=== PATIENT | female | born 1965 | race Caucasian/White ===

== ENCOUNTER → 2017-05-11 | Outpatient (CLI) | payer OTHER ==
[~2017-05-11] MED LIST: ALLEGRA D; BACTRIM DS TAB1 EACH PO; FINACEA50 GM TP; IBUPROFEN 200200 M1 PO; PATANOL EYE DROPS INTRAOCULR; PAZEO2.5 ML OP; PROTONIX40 M1 PO; TRAMADOL; TRAMADOL 50 MG50 MG PO
== END ==
LOC: M.RAD 13:13
DX: Z12.31 Encounter for screening mammogram for malignant neoplasm of breast (principal)

== ENCOUNTER → 2018-05-01 | Outpatient (CLI) | payer OTHER | LOC: M.RAD 16:18 | DX: M76.891 Other specified enthesopathies of right lower limb, excluding foot (principal); W19.XXXA Unspecified fall, initial encounter ==

== ENCOUNTER → 2018-08-17 | Outpatient (CLI) | payer OTHER | LOC: M.ULTRA 10:03 | DX: R10.13 Epigastric pain (principal); R11.0 Nausea ==

== ENCOUNTER → 2018-11-29 | Outpatient (CLI) | payer OTHER | LOC: M.MRI 14:02 | DX: S83.242A Other tear of medial meniscus, current injury, left knee, initial encounter (principal); G89.29 Other chronic pain; Z88.1 Allergy status to other antibiotic agents; Z88.8 Allergy status to other drugs, medicaments and biological substances; X58.XXXA Exposure to other specified factors, initial encounter; Y93.89 Activity, other specified; Y92.89 Other specified places as the place of occurrence of the external cause; Y99.8 Other external cause status ==

== ENCOUNTER → 2019-01-28 | Outpatient (CLI) | payer OTHER | LOC: M.RAD 13:15 | DX: Z12.31 Encounter for screening mammogram for malignant neoplasm of breast (principal) ==

== ENCOUNTER → 2019-03-25 | Outpatient (CLI) | payer OTHER | LOC: M.PC 01:15 | DX: M47.26 Other spondylosis with radiculopathy, lumbar region (principal); M43.16 Spondylolisthesis, lumbar region; M51.16 Intervertebral disc disorders with radiculopathy, lumbar region; Z88.8 Allergy status to other drugs, medicaments and biological substances ==

== ENCOUNTER → 2019-04-04 | Outpatient (CLI) | payer OTHER | LOC: M.MRI 14:09 | DX: M47.26 Other spondylosis with radiculopathy, lumbar region (principal); M43.16 Spondylolisthesis, lumbar region; M51.16 Intervertebral disc disorders with radiculopathy, lumbar region ==

== ENCOUNTER → 2020-04-02 | Outpatient (CLI) | payer OTHER | LOC: M.RAD 13:47 | PROVIDERS: ATTEND Registered Nurse Diabetes Educator | DX: Z12.31 Encounter for screening mammogram for malignant neoplasm of breast (principal) ==

== ENCOUNTER → 2020-05-06 | Outpatient (CLI) | payer OTHER | LOC: M.RAD 15:54 | PROVIDERS: ATTEND Registered Nurse Diabetes Educator | DX: M47.812 Spondylosis without myelopathy or radiculopathy, cervical region (principal); G89.29 Other chronic pain; M19.072 Primary osteoarthritis, left ankle and foot; M48.02 Spinal stenosis, cervical region; S99.922A Unspecified injury of left foot, initial encounter; M25.78 Osteophyte, vertebrae; X58.XXXA Exposure to other specified factors, initial encounter; Y93.89 Activity, other specified; Y92.89 Other specified places as the place of occurrence of the external cause; Y99.8 Other external cause status ==